=== PATIENT | male | born 1975 | race African-American/Black ===

== ENCOUNTER 2022-10-04 16:55 | Emergency (ER) | payer OTHER, MEDICAID ==
[~2022-10-04] VITALS: Ht 177.8 cm; Wt 80.0 kg
[2022-10-04 17:06] VITALS: BP 154/100
[2022-10-04 18:19] LABS: HEMATOCRIT. 43.9 % (42.0-52.0); HEMOGLOBIN. 15.1 g/dL (14.0-18.0); MEAN CORPUSCULAR HEMOGLOBIN 32.5 pg (28.0-32.0); MEAN CORPUSCULAR VOLUME 94.3 fL (80.0-94.0); MEAN PLATELET VOLUME 8.1 fl (7.4-10.4); PLATELET 275 x1000/uL (130-400); RED BLOOD CELL COUNT 4.66 mill/uL (4.7-6.1); RED CELL DISTRIBUTION WIDTH 13.2 % (11.6-14.6)
[2022-10-04 18:28] LABS: CHLORIDE 110 mEq/L (98-107)
[2022-10-04] MEDS ORDERED: DEXTROSE 50% WATER 50ML SYRINGE IV NR (18:45)
[2022-10-04] MEDS: SODIUM CHLORIDE 0.9% 1,000 ML IV ONE ×2 (19:01→19:14)
[2022-10-04] MEDS ORDERED: ACETAMINOPHEN 325MG TABLET PO ONE (19:15)
[2022-10-04 19:25] LABS: PLATELET ESTIMATE NORMAL
== END 2022-10-04 20:46 | disposition left against medical advice (07) ==
LOC: ER 16:55
DX: R55 Syncope and collapse (principal); R11.2 Nausea with vomiting, unspecified
CPT/HCPCS: 36415; 71045; 80053; 82962; 83690; 84484; 85025; 96361; 96374; 99284; Z7610